=== PATIENT | female | born 1945 | race Caucasian/White ===

== ENCOUNTER 2023-07-12 11:33 | Inpatient (IN) | payer BC, MEDICAID, MEDICARE ==
[~2023-07-12] VITALS: Ht 149.9 cm; Wt 78.0 kg
[~2023-07-12 11:33] MED LIST: ALBU8HFA PO; ASPI-10 PO; CLON-850 PO; COR3.125T PO; ERGO500054 PO; EZET10TA6 PO; FURO-150 PO; GABA-532 PO; GUAI600T45 PO; HYDR-3972 PO; IPRA3AMP31 IH; NITR0.4T48 SL; POTA20TA39 PO; ZOLP5TAB8 PO
[2023-07-12 14:19] LABS: BASOPHILS % (AUTO) 0.3 % (0-1); MEAN CORPUSCULAR HGB CONC 32.7 g/dL (33.0-36.5); MONOCYTES # (AUTO) 0.7 X10'3 (0-0.9); NEUTROPHILS # (AUTO) 16.5 X10'3 (1.8-7.7); WHITE BLOOD COUNT 17.8 X10'3 (4.5-11.0)
[2023-07-12 14:20] LABS: EOSINOPHILS % (AUTO) 0.2 % (0-6); HEMATOCRIT 31.6 % (35.0-45.0); HEMOGLOBIN 10.3 g/dl (12.0-16.0); LYMPHOCYTES # (AUTO) 0.5 X10'3 (1.1-4.8); LYMPHOCYTES % (AUTO) 2.8 % (21-51); MEAN CORPUSCULAR HEMOGLOBIN 29.3 PG (27.0-31.0); MEAN CORPUSCULAR VOLUME 89.7 FL (78-98); MEAN PLATELET VOLUME 8.9 FL (7.4-10.4); MONOCYTES % (AUTO) 3.9 % (2-12); NEUTROPHILS % (AUTO) 92.8 % (42-75); PLATELET COUNT 195 X10'3 (140-440); RED BLOOD COUNT 3.52 X10'6 (4.20-5.60); RED CELL DISTRIBUTION WIDTH 13.8 % (11.5-14.5)
[2023-07-12 14:46] LABS: ANION GAP 11 (8-16); BLOOD UREA NITROGEN 25 MG/DL (7-18); BUN/CREATININE RATIO 21.2 (10.0-20.0); CHLORIDE 100 MMOL/L (99-107); CREATININE 1.18 MG/DL (0.40-0.90); GLUCOSE 183 MG/DL (70-104); POTASSIUM 4.8 MMOL/L (3.5-5.1); SODIUM 135 MMOL/L (135-145); TOTAL CARBON DIOXIDE 23.9 MMOL/L (24-32); eCRCL 27 ML/MIN; eGFR 44 ML/MIN
[2023-07-12 14:47] LABS: CALCIUM 9.7 MG/DL (8.5-10.1)
[2023-07-12] MEDS: normal saline 1000ML IV soln IVB ONE ×2 (14:58→21:17)
[2023-07-12] MEDS: CefTRIAXone 2gm/D5W 50ml BAG 50 ML IV ONE (14:58)
[2023-07-12] MEDS: aspirin 81mg tab.chew PO ONE (15:04)
[2023-07-12 15:23] LABS: PRO BRAIN NATRIURETIC PEPTIDE > 30000 PG/ML (0-450)
[2023-07-12] MEDS: diltiazem 5mg/ml 5ml inj. IV ONE (16:08)
[2023-07-12] MEDS: morphine 2 MG/ML inj. syringe IV ONE (16:12)
[2023-07-12] MEDS: ondansetron/PF 4mg/2ml inj IV ONE (16:15)
[2023-07-12] MEDS: MESSAGE TO NURSING IV ONE ×2 (16:20→16:25)
[2023-07-12 17:08] LABS: APTT 31 SECONDS (22-32); INR 1.1 INR; PROTHROMBIN TIME 11.9 SECONDS (9.0-12.0)
[2023-07-12] MEDS: heparin 10,000 units/1 ML INJ IV ONE (17:16)
[2023-07-12] MEDS ORDERED: acetaminophen 325mg tablet PO PRN (17:25)
[2023-07-12] MEDS ORDERED: magnesium hydroxide 30ml (MOM) UD suspension PO PRN (17:25)
[2023-07-12] MEDS ORDERED: diphenhydrAMINE 25mg capsule PO PRN (17:25)
[2023-07-12] MEDS ORDERED: acetaminophen 650mg rectal suppository RC PRN (17:25)
[2023-07-12] MEDS ORDERED: diphenhydrAMINE 50 mg/ml inj IV PRN (17:25)
[2023-07-12] MEDS ORDERED: ipratropium/albuterol 3ml nebule NEB PRN (17:25)
[2023-07-12] MEDS: normal saline 1000ml 1,000 ML IV SCH (17:25)
[2023-07-12] MEDS ORDERED: bisacodyl 10mg suppository rectal RC PRN (17:25)
[2023-07-12] MEDS ORDERED: HYDROcodone/acetaminophen 5mg/325mg tablet PO PRN (17:25)
[2023-07-12] MEDS: azithromycin/NS 500mg/250ml 250 ML IV ONE (17:27)
[2023-07-12] MEDS ORDERED: glucagon, human recombinant 1mg kit SUBCUT PRN (17:30)
[2023-07-12] MEDS ORDERED: DEXTROSE 15 GM of carb/4 tabs (each vial/BOTTLE has 4 tablets) PO PRN ×2 (17:30)
[2023-07-12] MEDS ORDERED: dextrose 50%-water 50ml dispensing syringe IV PRN ×2 (17:30)
[2023-07-12 17:50] LABS: MAGNESIUM 1.9 MG/DL (1.5-2.4); PHOSPHORUS 2.8 MG/DL (2.3-4.5)
[2023-07-12] MEDS: heparin 25,000 UNIT/250ml bag 250 ML IV PRN (18:30)
[2023-07-12] MEDS: amiodarone 200mg tablet PO ONE (18:55)
[2023-07-12] MEDS: diltiazem-NS 100mg/100ml 100 ML IV ONE (19:23)
[2023-07-12 19:32] LABS: D-DIMER 2.12 MG/L FEU (0-0.50)
[2023-07-12] MEDS: methylPREDNISolone sod succ 125mg/2ml vial IV SCH (20:00)
[2023-07-12] MEDS: amiodarone 200mg tablet PO SCH (20:00)
[2023-07-12] MEDS: docusate sod 100mg capsule PO SCH (20:18)
[2023-07-12] MEDS ORDERED: heparin 10,000 units/1 ML INJ IV PRN (20:50)
[2023-07-12] MEDS: insulin Lispro (HumaLOG) vial - multi-dose SQ SCH (21:00)
[2023-07-13] VITALS (13 sets, daily range): BP systolic 101–159; BP diastolic 4–69; PULSE 63–89; RESP 14–25; TEMP 96.1–98.2; O2SAT 95–100
[2023-07-13 06:40] LABS: BASOPHILS % (AUTO) 0.1 % (0-1); EOSINOPHILS % (AUTO) 0 % (0-6); HEMATOCRIT 28.8 % (35.0-45.0); HEMOGLOBIN 9.5 g/dl (12.0-16.0); LYMPHOCYTES # (AUTO) 0.9 X10'3 (1.1-4.8); LYMPHOCYTES % (AUTO) 4.9 % (21-51); MEAN CORPUSCULAR HEMOGLOBIN 29.4 PG (27.0-31.0); MEAN CORPUSCULAR HGB CONC 32.9 g/dL (33.0-36.5); MEAN CORPUSCULAR VOLUME 89.5 FL (78-98); MEAN PLATELET VOLUME 8.9 FL (7.4-10.4); MONOCYTES # (AUTO) 0.4 X10'3 (0-0.9); MONOCYTES % (AUTO) 2.3 % (2-12); NEUTROPHILS # (AUTO) 16.2 X10'3 (1.8-7.7); NEUTROPHILS % (AUTO) 92.7 % (42-75); PLATELET COUNT 152 X10'3 (140-440); RED BLOOD COUNT 3.22 X10'6 (4.20-5.60); RED CELL DISTRIBUTION WIDTH 14.1 % (11.5-14.5); WHITE BLOOD COUNT 17.5 X10'3 (4.5-11.0)
[2023-07-13 06:53] LABS: ALANINE AMINOTRANSFERASE 56 U/L (12-78); ALBUMIN 2.4 G/DL (3.4-5.0); ALBUMIN/GLOBULIN RATIO 0.5 (1.1-1.5); ALKALINE PHOSPHATASE 119 IU/L (46-116); ANION GAP 8 (8-16); ASPARTATE AMINO TRANSFERASE 30 U/L (10-37); BILIRUBIN,TOTAL 0.5 MG/DL (0.1-1.0); BLOOD UREA NITROGEN 24 MG/DL (7-18); BUN/CREATININE RATIO 22.4 (10.0-20.0); CALCIUM 9.1 MG/DL (8.5-10.1); CHLORIDE 104 MMOL/L (99-107); CHOL/HDL RATIO 3.8 (0.00-4.99); CHOLESTEROL 155 MG/DL (0-200); CREATININE 1.07 MG/DL (0.40-0.90); GLUCOSE 216 MG/DL (70-104); HDL CHOLESTEROL 41 MG/DL (35-60); LDL CHOLESTEROL 90 MG/DL (50-100); POTASSIUM 4.7 MMOL/L (3.5-5.1); SODIUM 136 MMOL/L (135-145); TOTAL PROTEIN 7.5 G/DL (6.4-8.2); TRIGLYCERIDES 45 MG/DL (20-135); eCRCL 30 ML/MIN; eGFR 50 ML/MIN
[2023-07-13] MEDS: MESSAGE TO NURSING IV ONE ×2 (07:32→13:18)
[2023-07-13] MEDS: famotidine 20mg tablet PO SCH (07:48)
[2023-07-13] MEDS: CefTRIAXone/D5W-Rocephin 1gm 50 ML IV SCH (07:48)
[2023-07-13] MEDS: heparin 10,000 units/1 ML INJ IV PRN (07:50)
[2023-07-13] MEDS: heparin 25,000 UNIT/250ml bag 250 ML IV PRN (08:17)
[2023-07-13] MEDS: azithromycin/NS 500mg/250ml 250 ML IV SCH (09:52)
[2023-07-13] MEDS ORDERED: heparin 25,000 UNIT/250ml bag 250 ML IV PRN ×2 (12:14→12:17)
[2023-07-13] MEDS: EMPAGLIFLOZIN 10 MG TABLET PO SCH (13:22)
[2023-07-13] MEDS: clonazePAM 0.5mg tablet PO SCH (14:54)
[2023-07-13] MEDS ORDERED: apixaban 5mg tablet PO SCH (20:00)
[2023-07-13] MEDS: potassium chloride 10mEq ER tablet PO SCH (20:02)
[2023-07-13] MEDS: furosemide 40mg/4ml inj IV SCH (20:02)
[2023-07-13] MEDS: carvedilol 6.25mg tablet PO SCH (20:02)
[2023-07-14] VITALS (9 sets, daily range): BP systolic 103–158; BP diastolic 37–91; PULSE 53–89; RESP 14–20; TEMP 97.2–98.1; O2SAT 94–99
[2023-07-14 06:52] LABS: BASOPHILS % (AUTO) 0.1 % (0-1); EOSINOPHILS % (AUTO) 0 % (0-6); HEMATOCRIT 27.2 % (35.0-45.0); LYMPHOCYTES # (AUTO) 0.7 X10'3 (1.1-4.8); LYMPHOCYTES % (AUTO) 5.7 % (21-51); MEAN CORPUSCULAR HEMOGLOBIN 29.6 PG (27.0-31.0); MEAN CORPUSCULAR HGB CONC 32.9 g/dL (33.0-36.5); MEAN PLATELET VOLUME 9.2 FL (7.4-10.4); MONOCYTES # (AUTO) 0.3 X10'3 (0-0.9); MONOCYTES % (AUTO) 2.7 % (2-12); NEUTROPHILS # (AUTO) 10.5 X10'3 (1.8-7.7); NEUTROPHILS % (AUTO) 91.5 % (42-75); PLATELET COUNT 161 X10'3 (140-440); RED BLOOD COUNT 3.02 X10'6 (4.20-5.60); RED CELL DISTRIBUTION WIDTH 14.4 % (11.5-14.5); WHITE BLOOD COUNT 11.5 X10'3 (4.5-11.0)
[2023-07-14 07:25] LABS: ALANINE AMINOTRANSFERASE 46 U/L (12-78); ALBUMIN 2.2 G/DL (3.4-5.0); ALBUMIN/GLOBULIN RATIO 0.4 (1.1-1.5); ALKALINE PHOSPHATASE 112 IU/L (46-116); ANION GAP 5 (8-16); ASPARTATE AMINO TRANSFERASE 16 U/L (10-37); BILIRUBIN,TOTAL 0.3 MG/DL (0.1-1.0); BLOOD UREA NITROGEN 41 MG/DL (7-18); BUN/CREATININE RATIO 33.3 (10.0-20.0); CALCIUM 9.8 MG/DL (8.5-10.1); CHLORIDE 105 MMOL/L (99-107); CREATININE 1.23 MG/DL (0.40-0.90); GLUCOSE 180 MG/DL (70-104); SODIUM 137 MMOL/L (135-145); TOTAL CARBON DIOXIDE 27.4 MMOL/L (24-32); TOTAL PROTEIN 7.2 G/DL (6.4-8.2); eCRCL 26 ML/MIN; eGFR 42 ML/MIN
[2023-07-14 07:27] LABS: PRO BRAIN NATRIURETIC PEPTIDE > 30000 PG/ML (0-450)
[2023-07-14] MEDS: acetaminophen 325mg tablet PO PRN (19:47)
[2023-07-14] MEDS ORDERED: ferrous sulfate ER tablet 140 MG TABLET.ER PO SCH (21:14)
[2023-07-14] MEDS ORDERED: ferrous sulfate 325mg tablet PO SCH (21:22)
[2023-07-14] MEDS: apixaban 5mg tablet PO SCH (21:29)
[2023-07-14] MEDS: insulin glargine (Lantus) pen - multi-dose SQ SCH (21:39)
[2023-07-14] MEDS: ferrous sulfate 325mg tablet PO SCH (21:43)
[2023-07-14] MEDS: DOBUTamine-DoBUTrex 500mg/D5W 250 ML IV SCH (22:54)
[2023-07-15] VITALS (15 sets, daily range): BP systolic 105–174; BP diastolic 51–94; PULSE 56–101; RESP 13–20; TEMP 96.8–97.8; O2SAT 98
[2023-07-15] MEDS: DOBUTamine-DoBUTrex 500mg/D5W 250 ML IV SCH ×2 (01:29→05:21)
[2023-07-15] MEDS: morphine 2 MG/ML inj. syringe IV PRN (03:23)
[2023-07-15] MEDS: ondansetron/PF 4mg/2ml inj IV PRN (03:23)
[2023-07-15 05:47] LABS: BASOPHILS % (AUTO) 0.2 % (0-1); EOSINOPHILS % (AUTO) 0 % (0-6); HEMATOCRIT 27.5 % (35.0-45.0); HEMOGLOBIN 9.2 g/dl (12.0-16.0); LYMPHOCYTES # (AUTO) 0.6 X10'3 (1.1-4.8); LYMPHOCYTES % (AUTO) 5.5 % (21-51); MEAN CORPUSCULAR HEMOGLOBIN 30.2 PG (27.0-31.0); MEAN CORPUSCULAR HGB CONC 33.3 g/dL (33.0-36.5); MEAN CORPUSCULAR VOLUME 90.7 FL (78-98); MEAN PLATELET VOLUME 9.3 FL (7.4-10.4); MONOCYTES # (AUTO) 0.4 X10'3 (0-0.9); MONOCYTES % (AUTO) 4.1 % (2-12); NEUTROPHILS # (AUTO) 9.4 X10'3 (1.8-7.7); NEUTROPHILS % (AUTO) 90.2 % (42-75); PLATELET COUNT 184 X10'3 (140-440); RED BLOOD COUNT 3.03 X10'6 (4.20-5.60); RED CELL DISTRIBUTION WIDTH 14.5 % (11.5-14.5); WHITE BLOOD COUNT 10.4 X10'3 (4.5-11.0)
[2023-07-15 06:06] LABS: ALANINE AMINOTRANSFERASE 36 U/L (12-78); ALBUMIN 2.2 G/DL (3.4-5.0); ALBUMIN/GLOBULIN RATIO 0.4 (1.1-1.5); ALKALINE PHOSPHATASE 113 IU/L (46-116); ANION GAP 6 (8-16); ASPARTATE AMINO TRANSFERASE 14 U/L (10-37); BILIRUBIN,TOTAL 0.3 MG/DL (0.1-1.0); BLOOD UREA NITROGEN 60 MG/DL (7-18); BUN/CREATININE RATIO 44.1 (10.0-20.0); CALCIUM 9.6 MG/DL (8.5-10.1); CHLORIDE 103 MMOL/L (99-107); CREATININE 1.36 MG/DL (0.40-0.90); GLUCOSE 160 MG/DL (70-104); POTASSIUM 5.4 MMOL/L (3.5-5.1); SODIUM 135 MMOL/L (135-145); TOTAL CARBON DIOXIDE 26.1 MMOL/L (24-32); TOTAL PROTEIN 7.1 G/DL (6.4-8.2); eCRCL 23 ML/MIN; eGFR 38 ML/MIN
[2023-07-15 06:34] LABS: PRO BRAIN NATRIURETIC PEPTIDE > 30000 PG/ML (0-450)
[2023-07-15] MEDS: famotidine 20mg tablet PO SCH (08:11)
[2023-07-15] MEDS: sodium bicarbonate (8.4%) 1 mEq/ml syringe IV ONE (15:10)
[2023-07-15] MEDS: sodium polystyrene sulfonate 15gm/60ml oral suspension PO ONE (17:27)
[2023-07-15] MEDS: hydrALAZINE 20mg/ml inj. IV PRN (17:31)
[2023-07-15] MEDS: SODIUM ZIRCONIUM CYCLOSILICATE 10 GM POWD.PACK PO SCH (20:55)
[2023-07-16] VITALS (17 sets, daily range): BP systolic 95–155; BP diastolic 44–66; PULSE 60–106; RESP 14–18; TEMP 96.2–98.5; O2SAT 93–98
[2023-07-16] MEDS: temazepam 15mg capsule PO PRN (01:35)
[2023-07-16 07:57] LABS: BASOPHILS % (AUTO) 0.5 % (0-1); EOSINOPHILS % (AUTO) 0.3 % (0-6); HEMATOCRIT 29.4 % (35.0-45.0); HEMOGLOBIN 9.9 g/dl (12.0-16.0); LYMPHOCYTES # (AUTO) 1.5 X10'3 (1.1-4.8); LYMPHOCYTES % (AUTO) 15.8 % (21-51); MEAN CORPUSCULAR HEMOGLOBIN 30.2 PG (27.0-31.0); MEAN CORPUSCULAR HGB CONC 33.6 g/dL (33.0-36.5); MEAN CORPUSCULAR VOLUME 89.8 FL (78-98); MEAN PLATELET VOLUME 8.7 FL (7.4-10.4); MONOCYTES # (AUTO) 0.7 X10'3 (0-0.9); MONOCYTES % (AUTO) 7.2 % (2-12); NEUTROPHILS # (AUTO) 7.1 X10'3 (1.8-7.7); NEUTROPHILS % (AUTO) 76.2 % (42-75); PLATELET COUNT 225 X10'3 (140-440); RED BLOOD COUNT 3.28 X10'6 (4.20-5.60); RED CELL DISTRIBUTION WIDTH 14.1 % (11.5-14.5); WHITE BLOOD COUNT 9.3 X10'3 (4.5-11.0)
[2023-07-16 08:25] LABS: ALANINE AMINOTRANSFERASE 26 U/L (12-78); ALBUMIN 2.1 G/DL (3.4-5.0); ALBUMIN/GLOBULIN RATIO 0.5 (1.1-1.5); ALKALINE PHOSPHATASE 90 IU/L (46-116); ASPARTATE AMINO TRANSFERASE 15 U/L (10-37); BILIRUBIN,TOTAL 0.3 MG/DL (0.1-1.0); BLOOD UREA NITROGEN 43 MG/DL (7-18); BUN/CREATININE RATIO 40.2 (10.0-20.0); CALCIUM 9.3 MG/DL (8.5-10.1); CHLORIDE 108 MMOL/L (99-107); CREATININE 1.07 MG/DL (0.40-0.90); GLUCOSE 90 MG/DL (70-104); TOTAL PROTEIN 6.7 G/DL (6.4-8.2); eCRCL 30 ML/MIN; eGFR 50 ML/MIN
[2023-07-16 08:32] LABS: ANION GAP 8 (8-16); SODIUM 144 MMOL/L (135-145)
[2023-07-16] MEDS: lactose-reduced food (Ensure Enlive) - 237ml bottle PO SCH (13:26)
[2023-07-16] MEDS: nitroGLYCERIN 0.4mg SUBLingual tab SL PRN (16:12)
[2023-07-17] VITALS (18 sets, daily range): BP systolic 101–152; BP diastolic 44–79; PULSE 76–108; RESP 15–72; TEMP 97.2–97.9; O2SAT 94–99
[2023-07-17 07:22] LABS: BASOPHILS % (AUTO) 0.2 % (0-1); EOSINOPHILS # (AUTO) 0.2 X10'3 (0-0.9); EOSINOPHILS % (AUTO) 2.1 % (0-6); HEMATOCRIT 28.6 % (35.0-45.0); HEMOGLOBIN 9.6 g/dl (12.0-16.0); LYMPHOCYTES # (AUTO) 2.3 X10'3 (1.1-4.8); LYMPHOCYTES % (AUTO) 21.3 % (21-51); MEAN CORPUSCULAR HGB CONC 33.4 g/dL (33.0-36.5); MEAN CORPUSCULAR VOLUME 89.7 FL (78-98); MEAN PLATELET VOLUME 8.6 FL (7.4-10.4); MONOCYTES # (AUTO) 0.8 X10'3 (0-0.9); MONOCYTES % (AUTO) 7.8 % (2-12); NEUTROPHILS # (AUTO) 7.5 X10'3 (1.8-7.7); NEUTROPHILS % (AUTO) 68.6 % (42-75); PLATELET COUNT 226 X10'3 (140-440); RED BLOOD COUNT 3.19 X10'6 (4.20-5.60); WHITE BLOOD COUNT 10.9 X10'3 (4.5-11.0)
[2023-07-17 07:49] LABS: ALANINE AMINOTRANSFERASE 24 U/L (12-78); ALBUMIN 2.1 G/DL (3.4-5.0); ALBUMIN/GLOBULIN RATIO 0.5 (1.1-1.5); ALKALINE PHOSPHATASE 86 IU/L (46-116); ANION GAP 5 (8-16); ASPARTATE AMINO TRANSFERASE 13 U/L (10-37); BILIRUBIN,TOTAL 0.3 MG/DL (0.1-1.0); BLOOD UREA NITROGEN 40 MG/DL (7-18); BUN/CREATININE RATIO 36.4 (10.0-20.0); CALCIUM 8.9 MG/DL (8.5-10.1); CHLORIDE 104 MMOL/L (99-107); GLUCOSE 88 MG/DL (70-104); POTASSIUM 3.6 MMOL/L (3.5-5.1); PRO BRAIN NATRIURETIC PEPTIDE 12980 PG/ML (0-450); SODIUM 140 MMOL/L (135-145); TOTAL CARBON DIOXIDE 30.9 MMOL/L (24-32); TOTAL PROTEIN 6.3 G/DL (6.4-8.2); eCRCL 29 ML/MIN; eGFR 48 ML/MIN
[2023-07-17] MEDS: azithromycin 250mg tablet PO SCH (10:35)
[2023-07-17] MEDS ORDERED: CefTRIAXone/D5W-Rocephin 1gm 50 ML IV SCH (16:06)
[2023-07-17] MEDS: ondansetron 4mg rapidly disintigrating tab PO PRN (22:18)
[2023-07-17] MEDS: mag hydrox/Alum hydrox/simeth 30ml oral suspension PO PRN (22:18)
[2023-07-18 01:40] LABS: ALBUMIN 2.2 G/DL (3.4-5.0); ANION GAP 0 (8-16); BLOOD UREA NITROGEN 33 MG/DL (7-18); BUN/CREATININE RATIO 25.8 (10.0-20.0); CALCIUM 8.9 MG/DL (8.5-10.1); CHLORIDE 102 MMOL/L (99-107); CREATININE 1.28 MG/DL (0.40-0.90); GLUCOSE 99 MG/DL (70-104); POTASSIUM 4.1 MMOL/L (3.5-5.1); PRO BRAIN NATRIURETIC PEPTIDE 9352 PG/ML (0-450); SODIUM 139 MMOL/L (135-145); TOTAL CARBON DIOXIDE 37.1 MMOL/L (24-32); eCRCL 25 ML/MIN; eGFR 40 ML/MIN
[2023-07-18 02:00] VITALS: BP 111/52; PULSE 99; RESP 21; TEMP 97.2; O2SAT 96
[2023-07-18 06:00] VITALS: BP 103/49; PULSE 67; RESP 22; TEMP 97.7; O2SAT 98
[2023-07-18 08:00] VITALS: RESP 22; O2SAT 98
[2023-07-18 10:56] VITALS: BP 101/45; PULSE 55; RESP 20; TEMP 97.7; O2SAT 98
[2023-07-18 15:00] VITALS: BP_SYST 110; PULSE 68; PULSE 76; RESP 20; TEMP 98; O2SAT 98
[2023-07-18] MEDS ORDERED: AMIO200T27 PO (17:00)
[2023-07-18] MEDS ORDERED: APIX5TAB3 PO (17:00)
[2023-07-18] MEDS ORDERED: SPIR25TA PO (17:04)
[2023-07-18] MEDS ORDERED: EMPA10TA PO (17:04)
== END 2023-07-18 17:49 | disposition home health service (06) | DRG 871 ==
LOC: ER 11:33 → ED HOLD 17:28 → UNDOADMIN 17:28 → ED HOLD 07-13 02:35 → PCU 3S 07-13 02:35 → UNDODISIN 07-18 17:49
PROVIDERS: ADMIT Family Medicine; ATTEND Family Medicine
PROC: 05HB33Z Insertion of Infusion Device into Right Basilic Vein, Percutaneous Approach (ICD-10-PCS; principal; 2023-07-17)
DX: A41.9 Sepsis, unspecified organism (principal); I21.4 Non-ST elevation (NSTEMI) myocardial infarction; J18.9 Pneumonia, unspecified organism; I50.33 Acute on chronic diastolic (congestive) heart failure; J96.20 Acute and chronic respiratory failure, unspecified whether with hypoxia or hypercapnia; N17.9 Acute kidney failure, unspecified; I13.0 Hypertensive heart and chronic kidney disease with heart failure and stage 1 through stage 4 chronic kidney disease, or unspecified chronic kidney disease; J44.1 Chronic obstructive pulmonary disease with (acute) exacerbation; J44.0 Chronic obstructive pulmonary disease with (acute) lower respiratory infection; F11.20 Opioid dependence, uncomplicated; I25.10 Atherosclerotic heart disease of native coronary artery without angina pectoris; G89.4 Chronic pain syndrome; F32.A Depression, unspecified; F41.9 Anxiety disorder, unspecified; G47.33 Obstructive sleep apnea (adult) (pediatric); E78.00 Pure hypercholesterolemia, unspecified; E11.22 Type 2 diabetes mellitus with diabetic chronic kidney disease; N18.9 Chronic kidney disease, unspecified; F03.B0 Unspecified dementia, moderate, without behavioral disturbance, psychotic disturbance, mood disturbance, and anxiety; K58.9 Irritable bowel syndrome, unspecified; M54.9 Dorsalgia, unspecified; I27.20 Pulmonary hypertension, unspecified; E11.65 Type 2 diabetes mellitus with hyperglycemia; E87.5 Hyperkalemia; E11.42 Type 2 diabetes mellitus with diabetic polyneuropathy; I48.0 Paroxysmal atrial fibrillation; D64.9 Anemia, unspecified; Z88.8 Allergy status to other drugs, medicaments and biological substances; Z91.041 Radiographic dye allergy status; Z99.81 Dependence on supplemental oxygen; Z79.82 Long term (current) use of aspirin; Z79.899 Other long term (current) drug therapy; Z91.030 Bee allergy status; Z95.1 Presence of aortocoronary bypass graft; Z90.49 Acquired absence of other specified parts of digestive tract; Z87.891 Personal history of nicotine dependence; I25.2 Old myocardial infarction; Z86.73 Personal history of transient ischemic attack (TIA), and cerebral infarction without residual deficits; Z87.11 Personal history of peptic ulcer disease; Z87.442 Personal history of urinary calculi; Z82.49 Family history of ischemic heart disease and other diseases of the circulatory system
CPT/HCPCS: 36410; 36415; 71045; 71250; 76937; 80048; 80053; 80061; 82948; 83036; 83605; 83735; 83880; 84100; 84145; 84484; 85025; 85379; 85610; 85730; 87040; 87081; 93005; 93306; 94760; 96365; 96375; 97110; 97116; 97161; 97530; 99285; A6258; C1751; G0378; J0360; J0456; J0696; J1250; J1644; J1815; J1940; J2270; J2405; J2930; J3490; J7030; J7040

== ENCOUNTER 2023-08-09 13:12 | Inpatient (IN) | payer BC ==
[2023-08-09] VITALS (7 sets, daily range): BP systolic 146; BP diastolic 82; PULSE 72–116; RESP 18–26; TEMP 97.5; O2SAT 91–98
[~2023-08-09] VITALS: Ht 160 cm; Wt 68.0 kg
[~2023-08-09 13:12] MED LIST changes: +AMIO200T27 PO; +APIX5TAB3 PO; +EMPA10TA PO; -FURO-150 PO; -GABA-532 PO; +SPIR25TA PO
[2023-08-09] MEDS: ipratropium/albuterol 3ml nebule NEB ONE (15:23)
[2023-08-09 15:36] LABS: BASOPHILS % (AUTO) 0.4 % (0-1); EOSINOPHILS % (AUTO) 0.1 % (0-6); HEMATOCRIT 32.7 % (35.0-45.0); HEMOGLOBIN 10.7 g/dl (12.0-16.0); LYMPHOCYTES # (AUTO) 0.8 X10'3 (1.1-4.8); LYMPHOCYTES % (AUTO) 13.6 % (21-51); MEAN CORPUSCULAR HEMOGLOBIN 29.4 PG (27.0-31.0); MEAN CORPUSCULAR HGB CONC 32.6 g/dL (33.0-36.5); MEAN CORPUSCULAR VOLUME 90.2 FL (78-98); MEAN PLATELET VOLUME 8.5 FL (7.4-10.4); MONOCYTES # (AUTO) 0.5 X10'3 (0-0.9); MONOCYTES % (AUTO) 8.3 % (2-12); NEUTROPHILS # (AUTO) 4.7 X10'3 (1.8-7.7); NEUTROPHILS % (AUTO) 77.6 % (42-75); PLATELET COUNT 189 X10'3 (140-440); RED BLOOD COUNT 3.62 X10'6 (4.20-5.60); RED CELL DISTRIBUTION WIDTH 14.5 % (11.5-14.5); WHITE BLOOD COUNT 6.1 X10'3 (4.5-11.0)
[2023-08-09 15:54] LABS: ALBUMIN 3.1 G/DL (3.4-5.0); ANION GAP 8 (8-16); BLOOD UREA NITROGEN 16 MG/DL (7-18); BUN/CREATININE RATIO 17.2 (10.0-20.0); CALCIUM 9.3 MG/DL (8.5-10.1); CHLORIDE 100 MMOL/L (99-107); CREATININE 0.93 MG/DL (0.40-0.90); GLUCOSE 158 MG/DL (70-104); POTASSIUM 5.1 MMOL/L (3.5-5.1); SODIUM 132 MMOL/L (135-145); TOTAL CARBON DIOXIDE 24.3 MMOL/L (24-32); eCRCL 41 ML/MIN; eGFR 58 ML/MIN
[2023-08-09] MEDS: methylPREDNISolone sod succ 125mg/2ml vial IV ONE (16:03)
[2023-08-09] MEDS: CefTRIAXone 2gm/D5W 50ml BAG 50 ML IV ONE (16:03)
[2023-08-09] MEDS: HYDROmorphone inj. 0.5 MG/0.5 ML DISP.SYRIN IV ONE ×2 (16:32→18:12)
[2023-08-09] MEDS: magnesium 2GM in 50ml NS 50 ML IV ONE (17:50)
[2023-08-09] MEDS ORDERED: ondansetron/PF 4mg/2ml inj IV PRN (18:15)
[2023-08-09] MEDS ORDERED: ipratropium/albuterol 3ml nebule NEB PRN (18:20)
[2023-08-09] MEDS: furosemide 10 MG/1 ML 10ml inj IV ONE (18:43)
[2023-08-09 19:33] LABS: ALANINE AMINOTRANSFERASE 19 U/L (12-78); ALBUMIN 3.2 G/DL (3.4-5.0); ALBUMIN/GLOBULIN RATIO 0.6 (1.1-1.5); ALKALINE PHOSPHATASE 158 IU/L (46-116); ASPARTATE AMINO TRANSFERASE 17 U/L (10-37); BILIRUBIN,TOTAL 0.4 MG/DL (0.1-1.0); TOTAL PROTEIN 8.3 G/DL (6.4-8.2)
[2023-08-09 19:33] LABS: ABG BASE EXCESS -3.7 mmol/L (-2.0-2.0); ABG HCO3 22.1 mmol/L (22.0-26.0); ABG OXYGEN SATURATION 93.7 % (94-97); ABG PCO2 (T) 45.1 mmHg (32.0-45.0); ABG PH (T) 7.313 (7.350-7.450); ABG PO2 (T) 81.3 mmHg (75.0-100.0); ALLEN'S TEST POSITIVE; FCOHb 0.3 % (0.0-3.9); FHHb 6.3 % (0.0-5.0); FLOW 4 L/min; FMetHb 0.3 % (0.0-1.5); FO2Hb 93.1 % (94-97); MODE NASAL CANNULA; PATIENT TEMPERATURE 38.2; TOTAL HEMOGLOBIN 11.7 G/dl (12.0-16.0)
[2023-08-09] MEDS: ipratropium/albuterol 3ml nebule NEB SCH (19:34)
[2023-08-09 19:35] LABS: BILIRUBIN,DIRECT 0.1 MG/DL (0-0.3); PRO BRAIN NATRIURETIC PEPTIDE > 30000 PG/ML (0-450)
[2023-08-09] MEDS: apixaban 5mg tablet PO SCH (20:05)
[2023-08-09] MEDS: carVEDilol 3.125mg tablet PO SCH (20:05)
[2023-08-09] MEDS: methylPREDNISolone sod succ 125mg/2ml vial IV SCH (23:44)
[2023-08-10] VITALS (19 sets, daily range): BP systolic 132–164; BP diastolic 53–99; PULSE 67–79; RESP 15–20; TEMP 97.3–97.8; O2SAT 95–99
[2023-08-10 07:16] LABS: BASOPHILS % (AUTO) 0.1 % (0-1); EOSINOPHILS % (AUTO) 0 % (0-6); MEAN CORPUSCULAR VOLUME 89.2 FL (78-98); MONOCYTES # (AUTO) 0.1 X10'3 (0-0.9); NEUTROPHILS # (AUTO) 1.6 X10'3 (1.8-7.7); WHITE BLOOD COUNT 2.1 X10'3 (4.5-11.0)
[2023-08-10 07:18] LABS: HEMATOCRIT 31.3 % (35.0-45.0); HEMOGLOBIN 10.2 g/dl (12.0-16.0); LYMPHOCYTES # (AUTO) 0.5 X10'3 (1.1-4.8); LYMPHOCYTES % (AUTO) 22.2 % (21-51); MEAN CORPUSCULAR HEMOGLOBIN 28.9 PG (27.0-31.0); MEAN CORPUSCULAR HGB CONC 32.4 g/dL (33.0-36.5); MEAN PLATELET VOLUME 8.5 FL (7.4-10.4); MONOCYTES % (AUTO) 4.2 % (2-12); NEUTROPHILS % (AUTO) 73.5 % (42-75); PLATELET COUNT 158 X10'3 (140-440); RED BLOOD COUNT 3.51 X10'6 (4.20-5.60); RED CELL DISTRIBUTION WIDTH 14.7 % (11.5-14.5)
[2023-08-10 07:36] LABS: ALBUMIN 2.7 G/DL (3.4-5.0); ANION GAP 4 (8-16); BLOOD UREA NITROGEN 17 MG/DL (7-18); BUN/CREATININE RATIO 19.8 (10.0-20.0); CHLORIDE 102 MMOL/L (99-107); CREATININE 0.86 MG/DL (0.40-0.90); GLUCOSE 170 MG/DL (70-104); MAGNESIUM 2.4 MG/DL (1.5-2.4); SODIUM 136 MMOL/L (135-145); TOTAL CARBON DIOXIDE 29.7 MMOL/L (24-32); eCRCL 45 ML/MIN; eGFR 64 ML/MIN
[2023-08-10] MEDS: amiodarone 200mg tablet PO SCH (07:52)
[2023-08-10] MEDS: furosemide 20 MG/2 ML vial IV SCH (07:52)
[2023-08-10 07:54] LABS: PLATELET ESTIMATE NORMAL; TOTAL CELLS COUNTED 100
[2023-08-10] MEDS ORDERED: BUPR2TAB11 SL (12:50)
[2023-08-10] MEDS: buprenorphine/naloxone 2-0.5mg sublingual tablet SL ONE (13:55)
[2023-08-10] MEDS: buprenorphine/naloxone 2-0.5mg sublingual tablet SL SCH (15:25)
[2023-08-10] MEDS: Buprenorphine Hcl 2 MG SL SCH (20:33)
[2023-08-10] MEDS: guaiFENesin ER 600mg tablet PO SCH (20:37)
[2023-08-10] MEDS: zolpidem 5mg tablet PO SCH (20:37)
[2023-08-10] MEDS: acetaminophen 325mg tablet PO PRN (23:58)
[2023-08-11] VITALS (8 sets, daily range): BP systolic 118–133; BP diastolic 48–64; PULSE 69–82; RESP 14–20; TEMP 97.7–98.2; O2SAT 96–100
[2023-08-11 07:50] LABS: BASOPHILS % (AUTO) 0.1 % (0-1); EOSINOPHILS % (AUTO) 0 % (0-6); HEMOGLOBIN 10.4 g/dl (12.0-16.0); LYMPHOCYTES # (AUTO) 0.5 X10'3 (1.1-4.8); LYMPHOCYTES % (AUTO) 4.1 % (21-51); MEAN CORPUSCULAR HGB CONC 32.5 g/dL (33.0-36.5); MEAN CORPUSCULAR VOLUME 89.2 FL (78-98); MEAN PLATELET VOLUME 8.9 FL (7.4-10.4); MONOCYTES # (AUTO) 0.2 X10'3 (0-0.9); MONOCYTES % (AUTO) 1.9 % (2-12); NEUTROPHILS # (AUTO) 10.8 X10'3 (1.8-7.7); NEUTROPHILS % (AUTO) 93.9 % (42-75); PLATELET COUNT 183 X10'3 (140-440); RED BLOOD COUNT 3.59 X10'6 (4.20-5.60); RED CELL DISTRIBUTION WIDTH 14.4 % (11.5-14.5); WHITE BLOOD COUNT 11.5 X10'3 (4.5-11.0)
[2023-08-11] MEDS: spironolactone 25 MG tablet PO SCH (08:00)
[2023-08-11 08:13] LABS: ALBUMIN 2.8 G/DL (3.4-5.0); ANION GAP 3 (8-16); BLOOD UREA NITROGEN 35 MG/DL (7-18); BUN/CREATININE RATIO 27.6 (10.0-20.0); CALCIUM 9.3 MG/DL (8.5-10.1); CHLORIDE 101 MMOL/L (99-107); CREATININE 1.27 MG/DL (0.40-0.90); GLUCOSE 169 MG/DL (70-104); MAGNESIUM 2.5 MG/DL (1.5-2.4); POTASSIUM 5.2 MMOL/L (3.5-5.1); SODIUM 135 MMOL/L (135-145); eCRCL 30 ML/MIN; eGFR 41 ML/MIN
[2023-08-11] MEDS: aspirin 81mg tab.chew PO SCH (09:01)
[2023-08-11] MEDS: EMPAGLIFLOZIN 10 MG TABLET PO SCH (09:07)
[2023-08-11] MEDS ORDERED: PRED10TA23 PO (10:29)
[2023-08-11] MEDS ORDERED: FURO-150 PO (10:29)
[2023-08-11] MEDS ORDERED: ASPI-1265 PO (10:34)
== END 2023-08-11 16:11 | disposition home health service (06) | DRG 189 ==
LOC: ER 13:13 → ED HOLD 18:19 → PCU 3S 23:10
PROVIDERS: ADMIT Internal Medicine; ATTEND Internal Medicine
DX: J96.21 Acute and chronic respiratory failure with hypoxia (principal); I50.33 Acute on chronic diastolic (congestive) heart failure; I13.0 Hypertensive heart and chronic kidney disease with heart failure and stage 1 through stage 4 chronic kidney disease, or unspecified chronic kidney disease; J44.1 Chronic obstructive pulmonary disease with (acute) exacerbation; J84.10 Pulmonary fibrosis, unspecified; N18.30 Chronic kidney disease, stage 3 unspecified; I27.20 Pulmonary hypertension, unspecified; J98.01 Acute bronchospasm; E78.5 Hyperlipidemia, unspecified; I48.91 Unspecified atrial fibrillation; I25.10 Atherosclerotic heart disease of native coronary artery without angina pectoris; Z20.822 Contact with and (suspected) exposure to COVID-19; I25.2 Old myocardial infarction; F03.B0 Unspecified dementia, moderate, without behavioral disturbance, psychotic disturbance, mood disturbance, and anxiety; Z88.8 Allergy status to other drugs, medicaments and biological substances; E11.22 Type 2 diabetes mellitus with diabetic chronic kidney disease; G89.29 Other chronic pain; F41.9 Anxiety disorder, unspecified; F32.A Depression, unspecified; Z95.1 Presence of aortocoronary bypass graft; Z66 Do not resuscitate; Z82.49 Family history of ischemic heart disease and other diseases of the circulatory system
CPT/HCPCS: 36415; 36600; 71045; 80048; 80076; 82803; 83605; 83735; 83880; 84145; 84484; 85007; 85018; 85025; 87040; 87081; 87502; 87503; 87811; 92508; 92616; 93005; 94640; 94760; 99285; A4615; G0378; J0696; J1170; J1940; J2930; J3475